=== PATIENT | male | born 1960 | race Caucasian/White ===

== ENCOUNTER → 2020-04-02 | Outpatient (CLI) | payer OTHER ==
[~2020-04-02] MED LIST: DILT360C PO; OMEP20TA63 PO; OXYC-325 PO; VALA500T5 PO
== END ==
LOC: LAB 13:05
PROVIDERS: ATTEND Surgery
DX: Z01.812 Encounter for preprocedural laboratory examination (principal); Z20.828 Contact with and (suspected) exposure to other viral communicable diseases; K42.9 Umbilical hernia without obstruction or gangrene
CPT/HCPCS: U0003-CS

== ENCOUNTER 2020-04-05 10:45 | Day surgery (SDC) | payer OTHER ==
[~2020-04-05] VITALS: Ht 188 cm; Wt 124.5 kg
[~2020-04-05 10:45] MED LIST changes: +ACETAMINOPHEN 500 MG TABLET PO PRN; +BUPIVACAINE-EPI 0.25%-1:200000 MPF 30 ML VIAL. INJ ONE; -DILT360C PO; +HYDROmorphone 2 MG/ML VIAL IV PRN; +IV RINGERS,LACTATED 1000ML 1,000 ML IV SCH; +LIDOCAINE 1% PF 2 ML VIAL. ID PRN; +MORPHINE SULFATE 2 MG/ML VIAL. IV PRN; -OMEP20TA63 PO; +ONDANSETRON PF 4 MG/2 ML VIAL. IV PRN; -OXYC-325 PO; +PROCHLORPERAZINE 10 MG/2 ML VIAL. IV PRN; -VALA500T5 PO; +ceFAZolin SODIUM 3 GM in IV DEXTROSE 5% 100ML 100 ML IV PRN; +fentaNYL PF VIAL 100 MCG/2 ML VIAL IV PRN
[2020-04-05] MEDS ORDERED: DILT360C PO (10:48)
[2020-04-05] MEDS ORDERED: OMEP20TA63 PO (10:48)
[2020-04-05] MEDS ORDERED: VALA500T5 PO (10:49)
[2020-04-05] MEDS ORDERED: ROCURONIUM 50 MG/5 ML VIAL. ONE (11:13)
[2020-04-05] MEDS ORDERED: LIDOCAINE 2% PF 5 ML VIAL. ONE (11:14)
[2020-04-05] MEDS ORDERED: PROPOFOL 10 MG/ML (20ML) VIAL. IV ONE (11:14)
[2020-04-05] MEDS ORDERED: ONDANSETRON PF 4 MG/2 ML VIAL. ONE (11:14)
[2020-04-05] MEDS ORDERED: DEXAMETHASONE SOD PHOS 20 MG/5 ML VIAL. ONE (11:14)
[2020-04-05] MEDS ORDERED: fentaNYL PF VIAL 100 MCG/2 ML VIAL ONE (11:14)
[2020-04-05] MEDS ORDERED: KETOROLAC 30 MG/ML VIAL. ONE (11:14)
[2020-04-05] MEDS ORDERED: SEVOFLURANE 61 TO 120 MINUTES. IH ONE (11:14)
[2020-04-05] MEDS ORDERED: NEOSTIGMINE METHYLSULFATE 5 MG/5 ML SYRINGE. ONE (11:48)
[2020-04-05] MEDS ORDERED: GLYCOPYRROLATE 1 MG/5 ML VIAL. ONE (11:48)
--- NOTE | 2020-04-05 12:31 | PDOC4 ---
Operative Note Operative Note Date: 04/05/2020 at 1228 Preoperative diagnosis: Incarcerated medical hernia Postoperative diagnosis: Same Procedure: Robotic assisted laparoscopic ventral hernia repair with mesh Surgeon: Mendoza Specimen: None Dictation: Patient is a 60-year-old gentleman is complained of enlarging bulge at his umbilicus is painful at times. Procedure of robotic assisted laparoscopic ventral hernia repair with mesh was explained to the patient in detail risk-benefit were also discussed including bleeding infection injury to intra-abdominal contents possibly necessitating further or open operations alternatives to this procedure also discussed with the patient who seemed to understand and gave both verbal and written consent to have the procedure performed. Patient was taken to the operating room placed in the supine position general anesthesia was initiated once patient was sleeping intubated his abdomen was prepped and draped usual sterile fashion using ChloraPrep. An area in the left upper quadrant was injected with quarter percent Marcaine with epinephrine incision made 11 blade scalpel and a 5 mm Visiport was placed under direct visualization into the abdomen creating pneumoperitoneum. Once this was complete 5 mm camera was placed within the abdomen was inspected was noted that there is a hernia at the umbilicus with incarcerated omentum. A 8 mm da Geraldine port was placed in the lower left midabdomen and an 8 mm da Geraldine port was placed in the left lower abdomen and the 5 mm Visiport was changed out for a millimeter da Geraldine port in the left upper abdomen. The robot was brought and d ocked all port sites surgeon went to the robotic console using a grasper and Endo Jerman scissors the hernia sac and contents were reduced. Using 2 OV lock nonabsorbable suture the hernia defect was closed with a running suture. Ventral light ST mesh was then used to cover the hernia defect and this was sewn into place with a 2 OV lock absorbable suture and the peritoneum was closed over the mesh with a similar suture. The pneumoperitoneum was reduced all ports removed the da Geraldine undocked all port sites were closed for subcuticular Monocryl Mastisol Steri-Strips and island dressings were applied. Patient was awakened and extubated in the operating room taken to recovery in stable condition all sponge instrument needle counts listed as correct estimated blood loss 5 mL JANET DICKERSON MD Apr 05, 2020 12:31
--- NOTE | 2020-04-05 12:34 | DISCH ---
DISCHARGE INSTRUCTIONS Condition on Discharge Condition on Discharge: Stable Activity After Discharge Activity Instructions for Disc: Avoid exertion Other activity instructions: No lifting more than 20 pounds for 2 weeks Diet after Discharge Diet after Discharge: Regular Wound Incision Care Other wound/incision instructi: May shower in 24 hours Contacting the DRNicolas after DC Call your doctor for: If your condition worsens Follow-Up Follow up with: Follow-up Dr. Dickerson in 2 weeks JANET DICKERSON MD Apr 05, 2020 12:33
[2020-04-05] MEDS ORDERED: OXYC-325 PO (13:06)
[2020-04-05] MEDS ORDERED: oxyCODONE/APAP 5/325 1 TAB TABLET PO ONE (13:30)
[2020-04-05 13:35] VITALS: BP 118/71
== END 2020-04-05 14:10 | disposition home or self-care (01) ==
LOC: SURG 10:45
PROVIDERS: ATTEND Surgery
DX: K46.0 Unspecified abdominal hernia with obstruction, without gangrene (principal); K42.0 Umbilical hernia with obstruction, without gangrene; Z79.899 Other long term (current) drug therapy
CPT/HCPCS: 49653; A7015; C1781; J1100; J1885; J2405; J2704; J2710; J3010; J3490; S2900